=== PATIENT | male | born 1970 | race Native Hawaiian/Other Pacific Islander ===

== ENCOUNTER 2016-11-26 15:31 | Outpatient (CLI) | payer OTHER ==
[~2016-11-26 15:31] MED LIST: ADIPEX; B-125000 MC1 INJ; NEURONTIN800 MG PO; NORCO; OMEPRAZOLE20 MG PO; PERCOCET1 TA4 PO
== END 2016-11-26 16:35 | disposition home or self-care (01) ==
LOC: RAD 15:31
DX: M25.512 Pain in left shoulder (principal)

== ENCOUNTER 2017-01-01 11:10 | Outpatient (CLI) | payer OTHER | END 2017-01-01 13:00 | disposition home or self-care (01) | LOC: MRI 11:10 | DX: M54.12 Radiculopathy, cervical region (principal); M54.2 Cervicalgia ==

== ENCOUNTER 2017-01-02 13:16 | Outpatient (CLI) | payer OTHER | END 2017-01-02 19:15 | disposition home or self-care (01) | LOC: MRI 13:16 | DX: M25.512 Pain in left shoulder (principal) ==

== ENCOUNTER 2017-08-28 15:50 | Inpatient (IN) | payer OTHER ==
[~2017-08-28] VITALS: Ht 177.8 cm; Wt 109.5 kg
[2017-08-28 17:28] LABS: PLATELET COUNT 242 K/uL (142-355)
[2017-08-28] MEDS ORDERED: DIAZ5TAB20 PO (17:35)
[2017-08-28] MEDS ORDERED: METH10TA2 PO (17:36)
[2017-08-28] MEDS ORDERED: DILAUDID8 MG PO (17:38)
[2017-08-28] MEDS ORDERED: TEMA30CA18 PO (17:39)
[2017-08-28 17:47] LABS: POTASSIUM 3.1 mmol/L (3.6-5.2)
[2017-08-28 18:17] VITALS: BP 138/87; TEMP 97.9; Ht 177.8 cm; Wt 109.5 kg
[2017-08-28 20:00] VITALS: BP 112/72; TEMP 97.8
--- NOTE | 2017-08-28 23:49 | NUR ---
08/28/17 4689 WARM COMPRESS APPLIED TO GROIN AREA PT MEDICATED FOR PAIN S/O PRESENT IN ROOM.CC
[2017-08-29] VITALS: BP 106/72; TEMP 99.1
--- NOTE | 2017-08-29 01:21 | NUR ---
08/29/17 0115 PT C/O PAIN IN RIGHT GROIN AREA RATES 10 ON SCALE 1-10 SAID MAYBE WARM COMPRESS IS MAKING IT WORSE TOLD HIM WE WILL LEAVE IT OFF FOR A LITTLE WHILE AND LET IT EASE OFF.CC
[2017-08-29 03:55] VITALS: BP 104/67; TEMP 98.7
[2017-08-29 05:46] LABS: PLATELET COUNT 233 K/uL (142-355)
[2017-08-29 06:05] LABS: POTASSIUM 3.7 mmol/L (3.6-5.2)
[2017-08-29 08:00] VITALS: BP 113/57; TEMP 98.3
--- NOTE | 2017-08-29 08:30 | NUR ---
PT REFUSED WARM COMPRESSES.
[2017-08-29 12:09] VITALS: BP 116/72; TEMP 98.2
[2017-08-29 16:25] VITALS: BP 110/65; TEMP 97.6
[2017-08-29 20:00] VITALS: BP 98/57; TEMP 97.8
[2017-08-30] VITALS: BP 118/68; TEMP 98.2
--- NOTE | 2017-08-30 00:42 | NUR ---
08/29/172029 PT OFFERED TO PUT WARM COMPRESS ON TO GROIN BUT REFUSED SAID THIS MADE PAIN WORSE AND DOES NOT WANT IT S/O PRESENT AT BEDSIDE.CC
[2017-08-30 04:00] VITALS: BP 115/7; TEMP 97.4
--- NOTE | 2017-08-30 04:08 | NUR ---
08/30/17 0405 PT C/O PAIN IN BACK AND GROIN RATES 01/15 REQUEST PAIN MEDICATION.OFFERD WARM COMPRESS TO AREA PT REFUSES WARM COMPRESS. S/O SAID SHE WOULD LIKE TO NOT HAVE HIS LABS DRAWN AT THIS TIME WOULD LIKE TO WAIT TIL LATER THIS MORNING.CC
[2017-08-30 08:00] VITALS: BP 95/66; TEMP 97.8
[2017-08-30 10:05] LABS: PLATELET COUNT 243 K/uL (142-355)
[2017-08-30 10:15] LABS: POTASSIUM 4.1 mmol/L (3.6-5.2)
[2017-08-30 12:00] VITALS: BP 154/69; TEMP 98.6
--- NOTE | 2017-08-30 15:00 | NUR ---
DR. DISLA REQUESTED A CONSULT FROM DR. MARRUFO. HE WAS CONTACTED AND SHOULD BE TO SEE THE PATIENT THIS AFTERNOON/EVENING. PATIENT AND FAMILY NOTIFIED.
[2017-08-30 16:00] VITALS: BP 137/82; TEMP 98
--- NOTE | 2017-08-30 17:12 | NUR ---
PT REFUSED LUNCH TIME VITAL SIGNS. PT NURSE WAS AWARE.
[2017-08-30 20:00] VITALS: BP 108/68; TEMP 98
--- NOTE | 2017-08-30 22:42 | NUR ---
08/30/172004 DR. MARRUFO HERE REVIEWING PATIENT CHART.CC 08/30/172024 PT IN ROOM TO DISCUSS PLAN OF CARE WITH PT AND S/O. DR. MARRUFO PRESENT IN ROOM TO PERFORM I/D TO RIGHT GROIN.LIDOCAINE WITH EPI 2 PERCENT INJECTED IN TO RIGHT GROIN FOR PAIN RELIEF.PT OPENED AREA TO RIGHT GROIN WITH SCAPEL NUMBER 15.CLEANED AREA WITH PEROXIDE AND 4X4 PACKED X 2 INCISION SITES TO GROIN WITH PACKING STRIP APPLIED ABD PAD AND SECURED WITH PAPER TAPE.PT TOLERATED WELL.CC
[2017-08-31] VITALS: BP 107/77; TEMP 98
[2017-08-31 04:00] VITALS: BP 102/73; TEMP 97.5
[2017-08-31 08:00] VITALS: BP 112/76; TEMP 97.6
[2017-08-31 10:08] LABS: PLATELET COUNT 252 K/uL (142-355)
[2017-08-31 10:36] LABS: POTASSIUM 3.7 mmol/L (3.6-5.2)
[2017-08-31 12:00] VITALS: BP 126/77; TEMP 97.8
[2017-08-31 16:00] VITALS: BP 100/71; TEMP 97.9
[2017-08-31 19:59] VITALS: BP 131/90; TEMP 97.5
--- NOTE | 2017-08-31 21:48 | NUR ---
2100 PT REFUSED TO LET ME LOOK AT HIS GROIN DURING ASSESSMENT. PT STATED THAT HE WOULD WAIT UNTIL HE GOT HIS NEXT ROUND OF PAIN MEDS. WILL FOLLOW UP WITH MEDICATION WHEN IT IS TIME FOR THEM TO BE GIVEN.
--- NOTE | 2017-08-31 21:50 | NUR ---
2150 WENT TO PT ROOM TO GIVE PAIN MEDS. CHANGED PT DRESSING. PRIOR DRESSING WAS SATURATED WITH BLOOD TINGED DRAINAGE. SITE WAS PINK. MINIMAL SWELLING. REDRESSED THE SITE WITH TWO TELFA PADS AND A SANITARY PAD. WILL CONTINUE TO MONITOR.
[2017-09-01] VITALS: BP 114/87; TEMP 97.8
[2017-09-01 04:00] VITALS: BP 136/86; TEMP 97.4
[2017-09-01 05:24] LABS: PLATELET COUNT 270 K/uL (142-355)
[2017-09-01 05:41] LABS: POTASSIUM 3.3 mmol/L (3.6-5.2)
[2017-09-01 07:53] VITALS: BP 146/83
--- NOTE | 2017-09-01 08:00 | NUR ---
WALKED IN ROOM AND PT STATES IV IS LEAKING. IV IS COMPLETLY OUT. PT STATES HE IS VERY UPSET B/C HE HAD A ROUGH NIGHT. PT STATES HE WANTS TO WALK OUTSIDE BEFORE IV IS RESTARTED. PT INSTRUCTED TO NOTIFY NURSE WHEN BACK IN ROOM SO THAT A NEW IV CAN BE PUT IN.
--- NOTE | 2017-09-01 08:10 | NUR ---
IV RESTARTED BY GLORIA CARUSO AT THIS TIME. PAIN MED GIVEN PRESCRIBED. NO PROBLEMS NOTED.
--- NOTE | 2017-09-01 08:50 | NUR ---
WOUND CARE COMPLETE AT THIS TIME. (CHARTED UNDER WOUND CARE DOCUMENT). PT TOLERATED WELL. NAD NOTED.
--- NOTE | 2017-09-01 09:30 | NUR ---
DR. MARRUFO CALLED AT THIS TIME, HE STATES PT CAN BE D/C'D AND TO FU WITH HIM IN ONE WEEK. HE STATES PT IS TO CONT HOME MEDS.
[2017-09-01] MEDS ORDERED: LEVO250T2 PO (10:03)
--- NOTE | 2017-09-01 11:10 | NUR ---
IV D/C'D. D/C INSTRUCTIONS GIVEN. [facility] APT WITH DR. MARRUFO MADE FOR 09-14-17 AT 1030. PT TO CONT PACKING WOUNDS QD UNTIL FU. [facility]. PT HAS NO FUTHER QUESTIONS. PT WHEELED OUT AT THIS TIME VIA W/C. NO PROBLEMS NOTED.
== END 2017-09-01 11:15 | disposition home or self-care (01) | DRG 603 ==
LOC: MED/SURG 15:50
PROVIDERS: ADMIT Nurse Practitioner
PROC: 0H9AXZZ Drainage of Inguinal Skin, External Approach (ICD-10-PCS; principal; 2017-08-30)
DX: L02.214 Cutaneous abscess of groin (principal); B95.4 Other streptococcus as the cause of diseases classified elsewhere; M54.89 Other dorsalgia
CPT/HCPCS: 36415; 80053; 80202; 80307; 81000; 85027; 85651; 86140; 87040; 87070; 87077; 87185; 87186; 87205; 93005; 96365; 96366; 96367; 96375; J1170; Q9963

== ENCOUNTER 2018-01-11 13:59 | Outpatient (CLI) | payer OTHER ==
[~2018-01-11 13:59] MED LIST changes: +DIAZ5TAB20 PO; +DILAUDID8 MG PO; +LEVO250T2 PO; +METH10TA2 PO; +TEMA30CA18 PO
== END 2018-01-11 20:15 | disposition home or self-care (01) ==
LOC: MRI 13:59
DX: S49.81XA Other specified injuries of right shoulder and upper arm, initial encounter (principal); X58.XXXA Exposure to other specified factors, initial encounter; Y93.89 Activity, other specified; Y99.8 Other external cause status

== ENCOUNTER 2018-05-13 14:36 | Outpatient (CLI) | payer OTHER | END 2018-05-13 23:46 | disposition home or self-care (01) | LOC: LAB 14:36 | DX: E03.8 Other specified hypothyroidism (principal); R53.83 Other fatigue; R73.09 Other abnormal glucose | CPT/HCPCS: 36415; 84153; 84402; 84403; 84436; 84443 ==